=== PATIENT | male | born 1965 | race Caucasian/White ===

== ENCOUNTER 2017-07-04 13:41 | Emergency (ER) | payer OTHER ==
--- NOTE | 2017-07-04 15:10 | EDM.PDOC ---
ED HPI GENERAL MEDICAL PROBLEM - General Chief Complaint: Bite:Animal, Insect Stated Complaint: TICK EMBEDED IN LOWER BACK Time Seen by Provider: 07/04/17 14:57 Source of Information: Reports: Patient, RN Notes Reviewed History Limitations: Reports: No Limitations - History of Present Illness INITIAL COMMENTS - FREE TEXT/NARRATIVE: 52-year-old gentleman presents to the emergency department today with complaint of tender to attach to his left flank, for tick attached about 48 hours ago he did find it last night he was able to remove the tick he has a small wound with a small red spot of both sides the time - Related Data Allergies Allergy/AdvReac Type Severity Reaction Status Date / Time No Known Allergies Allergy Verified 07/04/17 14:48 Home Meds: Home Meds Omeprazole 07/04/17 [History] Past Medical History Gastrointestinal History: Reports: GERD Social & Family History - Tobacco Use Smoking Status *Q: Light Tobacco Smoker Years of Tobacco use: 20 Packs/Tins Daily: 0.1 ED ROS GENERAL - Review of Systems Review Of Systems: See Below Constitutional: Reports: No Symptoms Skin: Reports: Wound ED EXAM, ANIMAL BITE - Physical Exam Exam: See Below Text/Narrative:: Examination of the abdominal wall there is a small ulcer with erythema about the size the time I do not appreciate any remnants of the tick Exam Limited By: No Limitations General Appearance: Alert, WD/WN, No Apparent Distress Course - Vital Signs Last Recorded V/S: Last Vital Signs Temp 97.2 F 07/04/17 14:54 Pulse 77 07/04/17 14:54 Resp 14 07/04/17 14:54 BP 140/83 07/04/17 14:54 Pulse Ox 98 07/04/17 14:54 Departure - Departure Time of Disposition: 15:10 Disposition: Home, Self-Care 01 Condition: Good Clinical Impression: Tick bite of abdomen Qualifiers: Encounter type: initial encounter Qualified Code(s): S30.861A - Insect bite ( nonvenomous) of abdominal wall, initial encounter; W57.XXXA - Bitten or stung by nonvenomous insect and other nonvenomous arthropods, initial encounter - Discharge Information Referrals: PCP,None [Primary Care Provider] - Additional Instructions: Take full course of antibiotics, recommend using permethrin closing treatment before entering the flores, or a product like "insect shield", watch for signs and symptoms of tickborne illness follow-up primary care as needed - Assessment/Plan Plan: Assessment Acuity = acute Site and laterality = tick bite abdomen 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
== END 2017-07-04 15:30 | disposition home or self-care (01) ==
LOC: JP.ED 13:41
DX: S30.861A Insect bite (nonvenomous) of abdominal wall, initial encounter (principal); F17.210 Nicotine dependence, cigarettes, uncomplicated; K21.9 Gastro-esophageal reflux disease without esophagitis; W57.XXXA Bitten or stung by nonvenomous insect and other nonvenomous arthropods, initial encounter
CPT/HCPCS: 99283